=== PATIENT | male | born 1995 | race Caucasian/White ===

== ENCOUNTER 2020-03-18 20:43 | Emergency (ER) | payer OTHER ==
[~2020-03-18] VITALS: Ht 175.3 cm; Wt 104.3 kg
[2020-03-18] MEDS ORDERED: ITCH RELIEF15 G1 TOP (22:33)
== END 2020-03-18 22:38 | disposition home or self-care (01) ==
LOC: ER 20:43
DX: R10.31 Right lower quadrant pain (principal)